=== PATIENT | female | born 1995 | race Caucasian/White ===

== ENCOUNTER 2017-01-13 15:07 | Emergency (ER) | payer OTHER ==
[2017-01-13 15:33] VITALS: BP 119/67; PULSE 85; RESP 16; TEMP 98.2; O2SAT 98
--- NOTE | 2017-01-13 16:07 | UCPHY ---
H & P Time Seen by Provider: 01/13/17 15:40 Patient Type: Established HPI/ROS: HPI Sinus pressure, head congestion. 21-year-old female by private vehicle. She reports that she developed a scratchy throat with nasal congestion and rhinorrhea last Saturday. She reports that this progressed further with her nasal mucus becoming yellowish green in color and she reports having increased sinus pressure over the last 1- 2 days. She has not had a fever. No cough. She is requesting antibiotics for treatment of sinusitis. She reports she has had sinusitis in the past and has been treated at this Urgent Care in the past with antibiotics. ROS: Constitutional: No fever, no chills. No weakness. Eyes: No discharge. No changes in vision. ENT: As above Respiratory: No cough. No shortness of breath. Cardiac: No chest pain, no palpitations. Gastrointestinal: No abdominal pain, no vomiting, no diarrhea. Genitourinary: No hematuria. No dysuria or increased frequency with urination. Musculoskeletal: No back pain. No neck pain. No myalgias or arthralgias. Skin: No rashes. Neurological: No headache. No focal weakness or altered sensation. Past medical history: Asthma, short-term memory recall problems. Social history: Here by herself. Nonsmoker. Physical Exam: General Appearance: Alert, no distress. This patient is responding to questions appropriately and in full sentences. This patient appears well- hydrated and well-nourished. Eyes: Pupils equal and round no pallor or injection. No lid edema, erythema or injection. ENT, Mouth: Mucous membranes are moist. The pharyngeal tissues are unremarkable. No edema or swelling. No asymmetry suggestive of abscess. No erythema or exudates. Mild discomfort with palpation of the maxillary and frontal sinuses. No facial soft tissue changes. No erythema or warmth. Respiratory: There are no retractions, lungs are clear to auscultation with good air movement bilaterally. Cardiovascular: Regular rate and rhythm. No murmur. Neurological: Motor sensory function is grossly intact. Cranial nerves are normal. Gait is normal. Skin: Warm and dry, no rashes. Musculoskeletal: Neck is supple and nontender. No cervical, submandibular, submental lymphadenopathy. Extremities are symmetrical. All joints range without pain or impingement. Psychiatric: No agitation. No depression. Database: EKG: Imaging: Procedures: Emergency department course: After my evaluation of this patient as stated above, explained to her that she most likely had a viral process. She was very insistent however on getting a prescription for antibiotics. I agreed to treat her with Augmentin, 875 mg twice daily for 7 days. She also asked for refill of her albuterol inhaler prescription. This will be done. Her vital signs have been reviewed and are normal. I feel she is safe for discharge. She feels comfortable going home. Follow-up and return to Urgent Care precautions discussed. All of her questions were answered. She was discharged in good condition. Differential Diagnosis: The differential diagnosis on this patient includes but is not limited to upper respiratory infection, sinusitis. Serious bacterial infection unlikely. This represents a partial list of diagnoses considered. These considerations are based on history, physical exam, past history, reassessment and diagnostic testing. Smoking Status: Never smoked Constitutional: Initial Vital Signs Temperature (C) 36.8 C 01/13/17 15:27 Heart Rate 85 01/13/17 15:27 Respiratory Rate 16 01/13/17 15:27 Blood Pressure 119/67 01/13/17 15:27 O2 Sat (%) 98 01/13/17 15:27 O2 Delivery Mode Room Air Allergies/Adverse Reactions: No Known Allergies Allergy (Verified 01/13/17 15:26) Home Medications: Medication Instructions Recorded Adderall 10 MG (*) 01/13/17 Albuterol Hfa Anes Only 01/13/17 Albuterol [Proventil Inhaler HFA 2 puffs IH Q2-4PRN PRN #1 mdi 01/13/17 (*)] Amoxicillin/Clavulanate Pot 875 mg PO BID 7 Days 01/13/17 [Augmentin 875 mg tab] Bcp 01/13/17 Effexor 01/13/17 Valium 01/13/17 Departure - Departure Disposition: Home, Routine, Self-Care Clinical Impression: Sinusitis, Upper respiratory infection Condition: Good Instructions: Sinusitis (ED), Upper Respiratory Infection (ED) Additional Instructions: Read and follow provided instructions. Follow-up with your primary care physician in 1-2 days for re-evaluation. Take medication as prescribed for entire course of treatment. Ibuprofen dosin mg every 6 hours with meals for the next 3 days only. Return to the emergency department for worsening symptoms, fever, headache or other serious concerns. Referrals: NONE *PRIMARY CARE P,. [Primary Care Provider] - As per Instructions Prescriptions: Albuterol [Proventil Inhaler HFA (*)] 2 puffs IH Q2-4PRN PRN #1 mdi PRN Reason: Sob/Dyspnea Amoxicillin/Clavulanate Pot [Augmentin 875 mg tab] 875 mg PO BID 7 Days - PQRS PQRS Measurement: Not applicable.
== END 2017-01-13 16:12 | disposition home or self-care (01) ==
LOC: CED 15:07
DX: J32.9 Chronic sinusitis, unspecified (principal); J06.9 Acute upper respiratory infection, unspecified
CPT/HCPCS: G0463-PO